=== PATIENT | male | born 1970 | race Caucasian/White ===

== ENCOUNTER 2017-04-25 08:14 | Emergency (ER) | payer BC, OTHER ==
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
[2017-04-25] MEDS ORDERED: CYCLOBENZAPRINE HCL 5 MG TABLET PO ONE (08:40)
[2017-04-25 08:44] VITALS: BP 134/95; PULSE 85; TEMP 97.8; BMI 34.8
[2017-04-25] MEDS ORDERED: CYCLOBENZAPRINE HCL 10 MG TABLET (FP) ONE (08:47)
== END 2017-04-25 10:46 | disposition home or self-care (01) ==
LOC: FER 08:14
DX: M54.2 Cervicalgia (principal); M79.1 Myalgia; V43.52XA Car driver injured in collision with other type car in traffic accident, initial encounter; Y93.89 Activity, other specified; Y92.410 Unspecified street and highway as the place of occurrence of the external cause
CPT/HCPCS: 72125-TC; 73562-TC-RT-FY; 99282-25

== ENCOUNTER 2018-12-21 01:17 | Emergency (ER) | payer BC, OTHER ==
[2018-12-21 01:24] VITALS: BP 152/102; PULSE 76; TEMP 97.8; BMI 33.5
[2018-12-21] MEDS ORDERED: DIPHTH,PERTUSS(ACELL),TET 0.5 ML DISP.SYRIN IM ONE ×2 (01:25→01:27)
--- NOTE | 2018-12-21 01:27 | PDOC ---
History of Present Illness - General Chief Complaint: Laceration Stated Complaint: CUT LEFT INDEX FINGER LAST NIGHT Time Seen by Provider: 12/21/18 01:27 - History of Present Illness Initial Comments: This otherwise healthy 48-year-old man presents with laceration of his left index finger: Last night (greater than 24 hours ago) he sustained a cut of the dorsum of the index finger while cutting tiles in his home. He washed the laceration and poured alcohol on the cut. Persistent bleeding was controlled with pressure. Then, patient placed butterfly dressing and waterproof Band-Aid on surface of the wound. Today, no further bleeding occurred and patient has not had increase in pain or swelling in the wound. Patient does not recall date of most recent tetanus immunization No history of wound healing difficulties, resistant organism infection or colonization. No history of cellulitis or abscess formation Non-smoker No history of daily alcohol use; no other recreational drug use Past History - Past Medical History Allergies/Adverse Reactions: Allergies Allergy/AdvReac Type Severity Reaction Status Date / Time No Known Allergies Allergy Verified 12/21/18 01:19 Home Medications: Ambulatory Orders NK [No Known Home Medication] 12/21/18 Anemia: No COPD: No - Surgical History Abdominal Surgery: No - Immunization History Td Vaccination: No (UNKNOWN) Immunization Up to Date: Yes - Psycho Social/Smoking Cessation Hx Smoking Status: No Smoking History: Never smoked Years of Tobacco Use: 0 Have you smoked in the past 12 months: No Number of Cigarettes Smoked Daily: 0 Cigars Per Day: 0 Information on smoking cessation initiated: No Hx Alcohol Use: Yes Drug/Substance Use Hx: No Substance Use Type: None *Physical Exam - Vital Signs Last Vital Signs Temp Pulse Resp BP Pulse Ox 97.8 F 76 16 152/102 H 100 12/21/18 01:20 12/21/18 01:20 12/21/18 01:20 12/21/18 01:20 12/21/18 01:20 - Physical Exam Comments: GENERAL: Adult male, alert and oriented x3, in no acute distress HEAD: Normal with no signs of trauma. EYES: PERRLA, EOMI, sclera anicteric, conjunctiva clear. EXTREMITIES: Left upper extremity-intact butterfly and surface dressings over mid dorsum index finger No evidence of bleeding, edema , erythema or tenderness; passive and active ROM intact without pain No nail injury and distal digit is warm and dry with excellent capillary refill Extremity exam otherwise normal NEUROLOGICAL: Cranial nerves II through XII grossly intact. Normal speech. No focal neurological deficits . ED Progress Note - Progress Note Progress Note: This 48-year-old man, otherwise healthy and with no risk factors for poor wound healing or resistant organism colonization/infection, presents with left index finger laceration sustained more than 24 hours ago. Patient controlled bleeding with butterfly type dressing followed by waterproof Band-Aid. Today, patient has had no further bleeding or other new symptoms. Most recent tetanus immunization is unknown. Exam as noted above. Boostrix administered. It was explained to the patient that suturing of wounds should occur within 12 hours of injury; since he has no signs of significant inflammation/infection now , dressing should be kept intact and as dry as possible over the next few days. He should monitor the area closely and return or see his doctor if there are signs of increased inflammation/edema / pain at rest or on movement Since his blood pressure is moderately elevated (152/102), he should plan on following up with his doctor within the next several days both for blood pressure check and wound check. Patient states that he had a physical exam approximately 10 days ago and was told that his blood pressure was normal. Discharge - Discharge Information Problems reviewed: Yes Clinical Impression/Diagnosis: Laceration of left index finger Qualifiers: Encounter type: initial encounter Damage to nail status: without damage Foreign body presence: unspecified Qualified Code(s): S61.211A - Laceration without foreign body of left index finger without damage to nail, initial encounter Condition: Stable Disposition: HOME - Follow up/Referral - Patient Discharge Instructions Patient Printed Discharge Instructions: How to Care for a Laceration Prior to Repair Additional Instructions: Keep current bandage intact as dry as possible for the next 2 to 3 days Return to ER or see your doctor if wound area becomes more painful, swollen,red or you have difficulty moving the finger Follow-up with your doctor within the next week for blood pressure check and wound check - Post Discharge Activity
== END 2018-12-21 01:38 | disposition home or self-care (01) ==
LOC: FER 01:17
PROC: 3E0234Z Introduction of Serum, Toxoid and Vaccine into Muscle, Percutaneous Approach (ICD-10-PCS; principal; 2018-12-21)
DX: S61.211A Laceration without foreign body of left index finger without damage to nail, initial encounter (principal); W45.8XXA Other foreign body or object entering through skin, initial encounter; Y93.89 Activity, other specified; Y92.009 Unspecified place in unspecified non-institutional (private) residence as the place of occurrence of the external cause
CPT/HCPCS: 90715; 99281-25